=== PATIENT | female | born 1955 | race Caucasian/White ===

== ENCOUNTER → 2017-11-15 | Outpatient (CLI) | payer MEDICARE, OTHER ==
[~2017-11-15] MED LIST: ACE325 PO; ALB18R INH; CHRO400T2 PO; DICL100G39 TOP; DOC100 PO; LORA-802 PO; ONDA4TAB PO; PER PO; TOBR5DRO OU; [UNRECOGNIZED DRUG - CODE] MC
--- NOTE | 2017-11-16 09:30 | RADIOLOGY IMAGING REPORT ---
[place]AC[place] [facility] [place] NAME: ELVIN PURCELL : [id number] MR: [id number] V: [id number] EXAM DATE: ORDERING PHYSICIAN: ELVIN BHARDWAJ TECHNOLOGIST: Isabelle Garcia PROCEDURE:BILATERAL DIGITAL SCREENING MAMMOGRAM WITH CAD ASSISTED INTERPRETATION & 3D BREAST TOMOSYNTHYSIS COMPARISON:Prior mammograms dated 11/11/2016, 12/11/14, 09/08/11 INDICATIONS:SCREENING FINDINGS: Dense heterogeneous fibroglandular tissue is seen throughout the breasts. The parenchymal pattern has remained stable when allowing for difference in mammographic technique & patient positioning. There is no evidence of malignant appearing mass, malignant appearing calcification or secondary sign of malignancy in either breast. DIAGNOSTIC CATEGORY 2--BENIGN FINDING. RECOMMENDATIONS: ROUTINE MAMMOGRAM AND CLINICAL EVALUATION. IMPRESSION: BIRADS 2: Benign finding 1. No significant abnormality is seen Dictated by: Griselda Rebolledo M.D. on 11/15/2017 at 14:03 Transcribed by: MARIA ISABEL on 11/15/2017 at 14:22 Approved by: Griselda Rebolledo M.D. on 11/16/2017 at 8:38 [facility]
== END ==
LOC: MAMO 01:24
PROVIDERS: ATTEND Nurse Practitioner Family
DX: Z12.31 Encounter for screening mammogram for malignant neoplasm of breast (principal)
CPT/HCPCS: 77063; 77067

== ENCOUNTER 2018-01-17 16:58 | Emergency (ER) | payer MEDICARE, OTHER ==
[2018-01-17 17:05] VITALS: BP 132/81
--- NOTE | 2018-01-17 17:24 | ER Report ---
History and Physical Time Seen By MD: 17:24 Hx. of Stated Complaint: pain in right arm, shoulder, scapula area for approximately an hour HPI/ROS CHIEF COMPLAINT: Right shoulder pain HISTORY OF PRESENT ILLNESS: This is a 62-year-old female who presents to the emergency department with right shoulder pain. Patient states that about one hour prior to arrival she developed some right shoulder pain with a little bit of numbness and tingling down the posterior aspect of the arm the pain seems to increase with movement and the numbness and tingling seemed to decrease when her arm is rest. Patient denies any recent injuries. Her does however say that she has been exercising a little bit more here recently then she has in the past, she has also been using the rowing machine however she hasn't used that today. Patient denies nausea, vomiting, chest pain, shortness of breath, aches, chills denies dysuria or diarrhea. REVIEW OF SYSTEMS: Respiratory: No cough, no dyspnea. Cardiovascular: No chest pain, no palpitations. Gastrointestinal: No vomiting, no abdominal pain. Musculoskeletal: As above. Allergies: Coded Allergies: dicyclomine (Verified Allergy, Severe, VELT LIKE SHE WOULD PASS OUT, ) Sulfa (Sulfonamide Antibiotics) (Verified Allergy, Intermediate, HIVES, ) latex (Verified Allergy, Mild, RASH, 01/17/18) doxycycline (Verified Allergy, Unknown, 01/17/18) diazepam (Verified Adverse Reaction, Mild, OPPOSITE EFFECT, 01/17/18) Uncoded Allergies: IVP dye (Allergy, Unknown, 06/25/16) Home Meds Discontinued Reported Medications Loratadine (CLARITIN) 10 Mg Tablet, 1 TAB PO DAILY Y for al 12/05/14 Discontinued Scripts Albuterol Sulfate (VENTOLIN HFA) 18 Gm Inh, 1-2 PUFF INH QID Y for whe, #1 INH 0 Refills Prov:ELVIN BHARDWAJ APRN MARBLE SETTER HELPER-C 03/25/17 Oxycodone/Acetaminophen (OXYCODONE/ACETAMINOPHEN 5MG/325 MG) 5 Mg/325 Mg Tab, 1- 2 TAB PO Q6H, #14 TAB Prov:TERI PURDY NP 06/25/16 Ondansetron (ZOFRAN ODT) 4 Mg Tab.rapdis, 4 MG PO Q6H, #10 TAB TAKE 1 TABLET BY MOUTH EVERY 6 HOURS Prov:TERI PURDY BLAST SETTER 06/25/16 Past Medical/Surgical History Patient has a past medical and surgical history of migraines, asthma, GERD, fibromyalgia, melanoma, cataract surgery, multiple operations on the left lower extremity secondary to melanoma. Reviewed Nurses Notes: Yes Hx Smoking: No Smoking Status: Never Smoker Hx Substance Use Disorder: No Hx Alcohol Use: No Constitutional Vital Sign - Last 24 Hours 01/17/18 17:05 Temp 97.7 Pulse 75 Resp 14 B/P (MAP) 132/81 Pulse Ox 93 O2 Delivery Room Air Physical Exam General Appearance: The patient is alert, has no immediate need for airway protection and no current signs of toxicity. Eyes: Pupils equal and round no injection. Respiratory: Chest is non tender, lungs are clear to auscultation. Cardiac: regular rate and rhythm, no murmurs, clicks or rubs. Gastrointestinal: Abdomen is soft and non tender, no masses, bowel sounds normal. Musculoskeletal: Neck: Neck is supple and non tender. Extremities have full range of motion and are non tender. Right shoulder pain along the trapezius. 5 out of 5 body builder apprentice strength bilaterally. Negative Mora test. Positive pain with the right back scratch test. Skin: No rashes or lesions. DIFFERENTIAL DIAGNOSIS: After history and physical exam differential diagnosis was considered for but not limited to cervical strain, cervical radiculopathy and repetitive use injury. Medical Decision Making EKG/Imaging Imaging Location: [facility] Patient: Elvin Rousseau : 1955 Visit/Account:[id number] Date of Sevice: 01/17/2018 EXAMINATION: Cervical spine radiographs 3 views HISTORY: Pain COMPARISON: None. FINDINGS: Frontal, lateral and odontoid views obtained. Vertebral body heights are normal. No fracture or osseous destruction. Mild to moderate multilevel facet arthropathy. Slight anterolisthesis of C4 on C5. Slight retrolisthesis of C3 on C4. Moderate C5-6 and mild C6-7 degenerative disc disease. Normal prevertebral soft tissues. Clear upper lungs. IMPRESSION: No acute finding. Degenerative findings as described above. Report Dictated By: Gwyn Williamson MD at 01/17/2018 7:34 PM Report E-Signed By: Gwyn Williamson MD at 01/17/2018 7:36 PM WSN:[id number] Location: [facility] Patient: Elvin Rousseau : 1955 Visit/Account:[id number] Date of Sevice: 01/17/2018 EXAMINATION: Right shoulder radiographs 3 views HISTORY: Pain COMPARISON: None. FINDINGS: 3 views obtained. Bones: Normal. Joint spaces: The AC joint space is narrowed without adjacent bony osteophytes. Alignment: Normal. Soft tissues/visualized lungs: Normal. IMPRESSION: No fracture or malalignment. Degenerative AC joint narrowing without adjacent bony osteophytes. Report Dictated By: Gwyn Williamson MD at 01/17/2018 7:36 PM Report E-Signed By: Gwyn Williamson MD at 01/17/2018 7:38 PM WSN:[id number] ED Course/Re-evaluation ED Course The patient was admitted to room. A history of square obtained. Different diagnoses were considered. After examination of the patient's elected to do a cervical spine and right shoulder x-ray. X-rays showing no acute findings, they are consistent with degenerative disease. The patient and her wanted to leave prior to the official read from radiology I did give them a preliminary read and said if there is anything abnormal I would certainly give them a call and update them. They were okay with this. I did explain to the patient this is likely a cervical radiculopathy and I suggested following up with Dr. [facility] for reevaluation and possible MRI of the cervical spine. The patient and her were in agreement with this and will likely follow-up. No other questions or concerns at the time of discharge. Decision to Disposition Date: Jan 17, 2018 Decision to Disposition Time: 19:14 Depart Departure Latest Vital Signs Vital Signs Date Time Temp Pulse Resp B/P (MAP) Pulse Ox O2 Delivery O2 Flow Rate FiO2 01/17/18 17:05 97.7 75 14 132/81 93 Room Air Impression: Primary Impression: Cervical radiculopathy Condition: Improved Disposition: HOME OR SELF-CARE Referrals: ELVIN BHARDWAJ APRN MARBLE SETTER HELPER-C (PCP) GREG BOYKIN MD New Scripts No Active Prescriptions or Reported Meds Patient Instructions: Cervical Radiculopathy (ED) Additional Instructions: Drink plenty of fluids. Get plenty of rest. Consider following up with Dr. Boykin from [facility] for further evaluation of your cervical radiculopathy. Follow-up with your primary care provider as scheduled. Follow-up in [place] as scheduled for your repeat PET scan. Return to the emergency department for any other concerns or worsening symptoms. SANDRA BARNES MARBLE SETTER HELPER-BC Jan 17, 2018 17:24
--- NOTE | 2018-01-17 19:41 | RADIOLOGY IMAGING REPORT ---
FACILITY: [facility] PATIENT NAME: Amalia Rousseau : 1955 MR: [id number] V: [id number] EXAM DATE: ORDERING PHYSICIAN: SANDRA BARNES TECHNOLOGIST: Location: [facility] Patient: Amalia Rousseau : 1955 Visit/Account:[id number] Date of Sevice: 01/17/2018 EXAMINATION: Cervical spine radiographs 3 views HISTORY: Pain COMPARISON: None. FINDINGS: Frontal, lateral and odontoid views obtained. Vertebral body heights are normal. No fracture or osseous destruction. Mild to moderate multilevel fa cet arthropathy. Slight anterolisthesis of C4 on C5. Slight retrolisthesis of C3 on C4. Moderate C5-6 and mild C6-7 degenerative disc disease. Normal prevertebral soft tissues. Clear upper lungs. IMPRESSION: No acute finding. Degenerative findings as described above. Report Dictated By: Gwyn Williamson MD at 01/17/2018 7:34 PM Report E-Signed By: Gwyn Williamson MD at 01/17/2018 7:36 PM WSN:[id number]
--- NOTE | 2018-01-17 19:42 | RADIOLOGY IMAGING REPORT ---
FACILITY: [facility] - [place] PATIENT NAME: Amalia Rousseau : 1955 MR: [id number] V: [id number] EXAM DATE: ORDERING PHYSICIAN: SANDRA BARNES TECHNOLOGIST: Location: [facility] Patient: Amalia Rousseau : 1955 Visit/Account:[id number] Date of Sevice: 01/17/2018 EXAMINATION: Right shoulder radiographs 3 views HISTORY: Pain COMPARISON: None. FINDINGS: 3 views obtained. Bones: Normal. Joint spaces: The AC joint space is narrowed without adjacent bony osteophytes. Alignment: Normal. Soft tissues/visualized lungs: Normal. IMPRESSION: No fracture or malalignment. Degenerative AC joint narrowing without adjacent bony osteophytes. Report Dictated By: Gwyn Williamson MD at 01/17/2018 7:36 PM Report E-Signed By: Gwyn Williamson MD at 01/17/2018 7:38 PM WSN:[id number]
== END 2018-01-17 19:18 | disposition home or self-care (01) ==
LOC: ER 17:11
DX: M54.12 Radiculopathy, cervical region (principal)
CPT/HCPCS: 72040; 99282

== ENCOUNTER → 2018-11-07 | Outpatient (CLI) | payer MEDICARE, OTHER ==
--- NOTE | 2018-11-10 09:57 | RADIOLOGY IMAGING REPORT ---
FACILITY: [facility] [place] PATIENT NAME: ELVIN PURCELL : [id number] MR: [id number] V: [id number] EXAM DATE: [id number] ORDERING PHYSICIAN: ELVIN BHARDWAJ TECHNOLOGIST: Isabelle Garcia PROCEDURE:BILATERAL DIAGNOSTIC DIGITAL MAMMOGRAM WITH CAD ASSISTED INTERPRETATION & 3D TOMOSYNTHESIS COMPARISON:Prior mammograms 11/15/17, 11/11/16, 12/11/14. INDICATIONS:Crusty Left nipple with bloody discharge. FINDINGS: The breasts are heterogeneously dense which can obscure small masses. The parenchymal pattern has remained stable allowing for difference in mammographic technique & patient positioning. There are numerous scattered round calcifications see predominantly throughout the Left breast. A biopsy clip in the 12 o'clock position of the Left breast anterior 10/26 also noted. Today's Left breast Ultrasound did identify 2 hypoechoic regions along the undersurface of the Left breast for which Ultrasound guided core biopsy is recommended. This is discussed in a separate report. DIAGNOSTIC CATEGORY 4--SUSPICIOUS FOR MALIGNANCY. RECOMMENDATIONS: ULTRASOUND-GUIDED CORE BIOPSY: LEFT BREAST. IMPRESSION: BIRADS 4: Suspicious for malignancy. Ultrasound guided core biopsy of the 2 hypoechoic regions seen along the undersurface of the Left breast described in detail on the Left breast Ultrasound report. Dictated by: Griselda Rebolledo M.D. on 11/09/2018 at 18:22 Transcribed by: STEVE on 11/10/2018 at 9:44 Approved by: Griselda Rebolledo M.D. on 11/10/2018 at 9:56 [facility]
--- NOTE | 2018-11-10 11:43 | RADIOLOGY IMAGING REPORT ---
FACILITY: [facility] PATIENT NAME: ELVIN PURCELL : [id number] MR: [id number] V: [id number] EXAM DATE: [id number] ORDERING PHYSICIAN: ELVIN BHARDWAJ TECHNOLOGIST: Radha Hebert RDMS PROCEDURE:US LEFT BREAST COMPARISON:None. INDICATIONS:Crustiness of Left nipple with bloody discharge. FINDINGS: Numerous sonographic images were obtained in the periareolar portion of the Left breast. Images of the Right breast were also obtained for comparison. There is extensive ductal ectasia in the retroareolar portion of both breasts. Along the inferior portion of the Left breast adjacent to the nipple there is a 7 x 8 x 4mm ovoid hypoechoic mass for which Ultrasound guided core biopsy is recommended. There also appear to be indistinct heterogeneous hypoechoic tissue along the undersurface of the Left breast adjacent to the nipple from the approximate 4-6 o'clock position. Ultrasound guided core biopsy of this tissue also recommended. DIAGNOSTIC CATEGORY 4--SUSPICIOUS FOR MALIGNANCY. RECOMMENDATIONS: ULTRASOUND-GUIDED CORE BIOPSY: LEFT BREAST. IMPRESSION: BIRADS 4: Suspicious for malignancy. Ultrasound guided core biopsy of the hypoechoic nodule in the approximate just lateral to inferior to the Left nipple recommended in addition to Ultrasound guided core biopsy of the ill defined hypoechoic heterogeneous tissue from the 5-6 o'clock position of the left breast just beneath the nipple. Findings were discussed with the patient at the time of the examination. Dictated by: Griselda Rebolledo M.D. on 11/09/2018 at 18:18 Transcribed by: STEVE on 11/10/2018 at 9:56 Approved by: Griselda Rebolledo M.D. on 11/10/2018 at 11:42 [facility]
== END ==
LOC: MAMO 01:11
PROVIDERS: ATTEND Nurse Practitioner Family
DX: N63.42 Unspecified lump in left breast, subareolar (principal); N60.41 Mammary duct ectasia of right breast; N60.42 Mammary duct ectasia of left breast
CPT/HCPCS: 77062; 77066

== ENCOUNTER → 2018-11-09 | Outpatient (CLI) | payer MEDICARE, OTHER | LOC: US 00:38 | PROVIDERS: ATTEND Nurse Practitioner Family | DX: Z02.9 Encounter for administrative examinations, unspecified (principal) ==

== ENCOUNTER → 2018-11-13 | Outpatient (CLI) | payer MEDICARE, OTHER ==
[2018-11-13 10:17] LABS: INR 0.98
== END ==
LOC: LAB 09:59
PROVIDERS: ATTEND Nurse Practitioner Family
DX: Z01.818 Encounter for other preprocedural examination (principal)
CPT/HCPCS: 36415; 85610; 85730

== ENCOUNTER → 2018-11-14 | Outpatient (CLI) | payer MEDICARE, OTHER ==
--- NOTE | 2018-11-15 08:36 | RADIOLOGY IMAGING REPORT ---
FACILITY: [facility] PATIENT NAME: ELVIN PURCELL : [id number] MR: [id number] V: [id number] EXAM DATE: [id number] ORDERING PHYSICIAN: ELVIN BHARDWAJ TECHNOLOGIST: Clyde Irizarry RDMS, MARCUS PROCEDURE: BIOPSY LEFT BREAST ULTRASOUND COMPARISON: None. INDICATIONS: 2 left breast mass FINDINGS: Informed consent was obtained. The patient's Left breast was prepped and draped in the usual sterile fashion. Local anesthesia was accomplished with 1% lidocaine. Utilizing sonographic guidance (3) ultrasound guided biopsies were obtained through the irregular hypoechoic region in the 4 o'clock position of the Left breast. A biopsy clip was placed in the biopsy site. The patient received additional local anesthesia with 1% lidocaine and (2) 14 Gauge biopsies were obtained through the ovoid hypoechoic nodule just inferior to the nipple in the approximate 6 o'clock position of the Left breast. A biopsy clip was placed in this biopsy site. Samples were placed in formalin shown to the patient and sent to the Laboratory for evaluation. The procedure was accomplished without apparent complication. IMPRESSION: 1. Successful ultrasound guided core biopsy of 2 Left breast masses as detailed above. Pathology results are pending. Dictated by: Griselda Rebolledo M.D. on 11/14/2018 at 16:41 Transcribed by: STEVE on 11/15/2018 at 8:30 Approved by: Griselda Rebolledo M.D. on 11/15/2018 at 8:35 [facility]
--- NOTE | 2018-11-15 08:36 | RADIOLOGY IMAGING REPORT ---
FACILITY: [facility] [place]IENT NAME: ELVIN PURCELL : [id number] MR: [id number] V: [id number] EXAM DATE: [id number] ORDERING PHYSICIAN: ELVIN BHARDWAJ TECHNOLOGIST: Clyde Irizarry RDMS, MARCUS PROCEDURE: BIOPSY LEFT BREAST ULTRASOUND COMPARISON: None. INDICATIONS: 2 left breast mass FINDINGS: Informed consent was obtained. The patient's Left breast was prepped and draped in the usual sterile fashion. Local anesthesia was accomplished with 1% lidocaine. Utilizing sonographic guidance (3) ultrasound guided biopsies were obtained through the irregular hypoechoic region in the 4 o'clock position of the Left breast. A biopsy clip was placed in the biopsy site. The patient received additional local anesthesia with 1% lidocaine and (2) 14 Gauge biopsies were obtained through the ovoid hypoechoic nodule just inferior to the nipple in the approximate 6 o'clock position of the Left breast. A biopsy clip was placed in this biopsy site. Samples were placed in formalin shown to the patient and sent to the Laboratory for evaluation. The procedure was accomplished without apparent complication. IMPRESSION: 1. Successful ultrasound guided core biopsy of 2 Left breast masses as detailed above. Pathology results are pending. Dictated by: Griselda Rebolledo M.D. on 11/14/2018 at 16:41 Transcribed by: STEVE on 11/15/2018 at 8:30 Approved by: Griselda Rebolledo M.D. on 11/15/2018 at 8:35 [facility]
== END ==
LOC: MAMO 01:00
PROVIDERS: ATTEND Nurse Practitioner Family
DX: N60.42 Mammary duct ectasia of left breast (principal); N60.22 Fibroadenosis of left breast
CPT/HCPCS: 19083; 77061; 77065; 88305; 88344

== ENCOUNTER → 2018-11-21 | Outpatient (CLI) | payer MEDICARE, OTHER | LOC: LAB 09:01 | PROVIDERS: ATTEND Nurse Practitioner Family | DX: R30.9 Painful micturition, unspecified (principal); R35.0 Frequency of micturition | CPT/HCPCS: 81001 ==

== ENCOUNTER → 2018-12-11 | Outpatient (CLI) | payer MEDICARE, OTHER ==
[~2018-12-11] MED LIST changes: +ESTR10TA4 VG; +FLUC40SU11 PO
--- NOTE | 2018-12-11 11:06 | RADIOLOGY IMAGING REPORT ---
FACILITY: [facility] PATIENT NAME: Amalia Rousseau : 1955 MR: [id number] V: [id number] EXAM DATE: ORDERING PHYSICIAN: AMALIA BHARDWAJ TECHNOLOGIST: Location: [facility] Patient: Amalia Rousseau : 1955 Visit/Account:[id number] Date of Sevice: 12/11/2018 DEXA Scan Clinical history: Osteopenia. Comparison: DEXA scan from 12/11/2014.. LUMBAR SPINE: The bone mineral density (BMD) measured from L1-L4 correlates with a Z-score 2.0 and a T-score of 0. 0 which is Normal as defined by the World Health Organization. The corresponding risk of fracture in the lumbar spine is Not increased compared with a young adult reference population. This value has decrease by 1.8 % since the prior study. More than 5% change is considered significant. HIP: Bone mineral density (BMD) measured in the Left femoral neck region correlates with a Z-score 0.1 and a T-score of -1.6 which is osteopenia as defined by the World Health Organization. The correspond ing risk of fracture in the hip is increased compared with a young adult reference population. The to jerod hip value has decreased by 2.7 % since the prior study. More than 5% change is considered signif icant. Bone mineral density (BMD) measured in the Femoral Neck region measures 0.811 g/cm2. IMPRESSION: 1. Lumbar spine: Normal. There has been decreased in the bone mineral density since the previous ex am. 2. Left femoral neck region: Osteopenia. There has been decreased in the bone mineral density of th e total hip since the previous exam. 3. Femoral Neck: Bone Mineral Density is 0.811 g/cm2 The next DEXA scan of this patient should include the following sites: L1-L4 and the left hip. FRAX? WHO Fracture Risk Assessment Tool link: <http://www.shef.ac.uk/FRAX/tool.jsp?locationValue=9> PLEASE NOTE: 1) The World Health Organization defines low BMD as follows: T-score Normal > -1 Osteopenia < -1 and > -2.5 Osteoporosis < -2.5 without fractures Established osteoporosis < -2.5 with fractures 2) In general, you may wish to consider: Diagnosis Treatment Follow-up DEXA Normal BMD Prevention 2-3 years Osteopenia Prevention/therapy 1-2 years Osteoporosis Therapy Yearly 3) Fracture risk estimated from the T-score is more accurate for vertebral fractures (often spontane ous) than for hip fractures. Report Dictated By: Nik Martines at 12/11/2018 10:56 AM Report E-Signed By: Nik Martines at 12/11/2018 10:58 AM WSN:[email or web address]
== END ==
LOC: RAD 01:16
PROVIDERS: ATTEND Nurse Practitioner Family
DX: M85.88 Other specified disorders of bone density and structure, other site (principal)
CPT/HCPCS: 77080

== ENCOUNTER → 2019-02-28 | Outpatient (CLI) | payer MEDICARE, OTHER ==
[~2019-02-28] MED LIST changes: +AZIT100S21 PO; +AZIT500T47 PO
[2019-02-28 10:52] LABS: PLATELET COUNT, AUTOMATED 136 K/uL (150-450)
== END ==
LOC: LAB 10:19
PROVIDERS: ATTEND Surgery
DX: R10.11 Right upper quadrant pain (principal)
CPT/HCPCS: 36415; 82040; 82247; 82310; 82374; 82435; 82565; 82947; 83690; 84075; 84132; 84155; 84295; 84450; 84460; 84520; 85025

== ENCOUNTER → 2019-03-07 | Outpatient (CLI) | payer MEDICARE, OTHER ==
--- NOTE | 2019-03-07 14:36 | RADIOLOGY IMAGING REPORT ---
FACILITY: [facility] [place] PATIENT NAME: Amalia Rousseau : 1955 MR: [id number] V: [id number] EXAM DATE: ORDERING PHYSICIAN: SHADY WEAVER TECHNOLOGIST: Location: [facility] [place] Patient: Amalia Rousseau : 1955 Visit/Account:[id number] Date of Sevice: 03/07/2019 GALLBLADDER HISTORY: right upper quadrant pain COMPARISON: None. FINDINGS: Gallbladder: Unremarkable; no stones or sludge. Liver: Negative. Common duct: Normal, 2.3 mm diameter. Pancreas: Partially obscured by bowel, visualized aspects unremarkable. Right kidney: Right kidney measures 8.1 cm in length. There is minimal fullness of the right renal p hossein Upper abdominal aorta and IVC: Patent. Ascites: None visualized. IMPRESSION: There is minimal fullness the right renal pelvis which is likely physiologic although clinical correl ation needed Report Dictated By: Griselda Rebolledo MD at 03/07/2019 2:27 PM Report E-Signed By: Griselda Rebolledo MD at 03/07/2019 2:31 PM WSN:[email or web address]
== END ==
LOC: US 00:42
PROVIDERS: ATTEND Surgery
DX: R10.11 Right upper quadrant pain (principal)
CPT/HCPCS: 76705

== ENCOUNTER → 2019-04-05 | Outpatient (CLI) | payer MEDICARE, OTHER ==
[~2019-04-05] MED LIST changes: +TRIA5PAS12 MT
--- NOTE | 2019-04-05 13:42 | RADIOLOGY IMAGING REPORT ---
FACILITY: [facility] [place] PATIENT NAME: Amalia Rousseau : 1955 MR: [id number] V: [id number] EXAM DATE: ORDERING PHYSICIAN: SHADY WEAVER TECHNOLOGIST: Location: [facility] [place] Patient: Amalia Rousseau : 1955 Visit/Account:[id number] Date of Sevice: 04/05/2019 KIDNEYS EXAMINATION: Renal ultrasound. History: Hydronephrosis COMPARISON STUDIES: CT June 25, 2016 FINDINGS: Kidneys: Right kidney- 8.7 x 4.7 x 6.4 cm Left kidney- 10.6 x 4.1 x 5.2 cm Uniform and symmetric blood flow in each kidney by Doppler ultrasound. Hydronephrosis: none Distended on the right 0.66 on the left 0.56 Bladder: Prevoid volume 358 mL. Post for residual 10.1 mL. Bilateral ureteral jets are present Abdominal aorta and IVC: Aorta and IVC are patent by Doppler ultrasound. IMPRESSION: Unremarkable renal ultrasound Report Dictated By: Griselda Rebolledo MD at 04/05/2019 12:39 PM Report E-Signed By: Griselda Rebolledo MD at 04/05/2019 1:38 PM WSN:[email or web address]
== END ==
LOC: US 00:56
PROVIDERS: ATTEND Surgery
DX: N13.30 Unspecified hydronephrosis (principal)
CPT/HCPCS: 76705